=== PATIENT | male | born 1950 | race Caucasian/White ===

== ENCOUNTER 2017-08-07 08:05 | Day surgery (SDC) | payer MEDICARE ==
[2017-08-07] MEDS ORDERED: METOCLOPRAMIDE 10 MG TABLET PO ONE (08:06)
[2017-08-07] MEDS ORDERED: ACETAMINOPHEN 1,000 MG/100 ML BTL IV ONE (08:06)
[2017-08-07] MEDS ORDERED: ONDANSETRON HCL IV 4 MG/2 ML VIAL IVP ONE ×2 (08:06→16:30)
[2017-08-07] MEDS ORDERED: MIDAZOLAM HCL 2MG/2ML VIAL IV ONE (08:06)
[2017-08-07] MEDS ORDERED: MECLIZINE 25 MG TABLET PO ONE (08:06)
[2017-08-07] MEDS ORDERED: PHENYLEPHRINE HCL 10 MG/ML VIAL IVP ONE (08:06)
[2017-08-07] MEDS ORDERED: BUPIVACAINE 0.25% W/EPI MPF 30ML VIAL IVP ONE (08:06)
[2017-08-07] MEDS ORDERED: *PACU ONLY* KETAMINE HCL 10 MG/ML (20ML) VIAL IV ONE (08:06)
[2017-08-07] MEDS ORDERED: KETOROLAC 30 MG/ML VIAL IVP ONE (08:06)
[2017-08-07] MEDS ORDERED: HYDROMORPHONE HCL 2 MG/ML VIAL IV ONE (08:06)
[2017-08-07] MEDS ORDERED: PROPOFOL 10 MG/ML VIAL IV ONE (08:06)
[2017-08-07] MEDS ORDERED: EPHEDRINE SULFATE 50 MG/ML ML IV ONE (08:06)
[2017-08-07] MEDS ORDERED: BUPIVACAINE LIPOSOME 266MG/20ML VIAL IV ONE (08:06)
[2017-08-07] MEDS ORDERED: TRANEXAMIC ACID 1,000 MG/10 ML ML IV ONE ×2 (08:06)
[2017-08-07] MEDS ORDERED: 0.9 % SODIUM CHLORIDE 10 ML VIAL IVP ONE (08:06)
[2017-08-07] MEDS ORDERED: DIPHENHYDRAMINE HCL 50 MG/ML VIAL IVP ONE (08:06)
[2017-08-07] MEDS ORDERED: CEFAZOLIN 2 Gram 2 GM/50 ML BAG IVPB ONE (08:06)
[2017-08-07] MEDS ORDERED: FENTANYL PF 100MCG/2ML VIAL IV ONE (08:06)
[2017-08-07] MEDS ORDERED: FAMOTIDINE 20MG TABLET PO ONE (08:06)
[2017-08-07] MEDS ORDERED: WATER STERILE FOR INJECTION 20 ML VIAL IV ONE (08:06)
[2017-08-07] MEDS ORDERED: ONDANSETRON HCL IV 4 MG/2 ML VIAL IVP PRN (11:30)
[2017-08-07] MEDS ORDERED: OXYCODONE HCL 5 MG TABLET PO PRN (11:30)
[2017-08-07] MEDS ORDERED: TRAMADOL HCL 50 MG TABLET PO PRN ×2 (11:30)
[2017-08-07] MEDS ORDERED: SENNOSIDES/DOCUSATE SODIUM UD CAPSULE PO PRN (11:30)
[2017-08-07] MEDS ORDERED: METOCLOPRAMIDE HCL 10 MG/2 ML VIAL IVP PRN (11:30)
[2017-08-07] MEDS ORDERED: DIPHENHYDRAMINE HCL 25 MG CAPSULE PO PRN (11:30)
[2017-08-07] MEDS ORDERED: AL HYDROX/MAG HYDROX 30ML UD PO PRN (11:30)
[2017-08-07] MEDS ORDERED: HYDROMORPHONE HCL 2 MG/ML VIAL IV PRN (11:30)
[2017-08-07] MEDS ORDERED: ZOLPIDEM TARTRATE 5 MG TABLET PO PRN (11:30)
[2017-08-07] MEDS ORDERED: MAGNESIUM HYDROXIDE 30 ML UDC PO PRN (11:30)
[2017-08-07] MEDS ORDERED: TRANEXAMIC ACID 1,000 MG in 0.9 % SODIUM CHLORIDE 100ML 100 ML IVPB ONE (13:00)
[2017-08-07] MEDS ORDERED: RINGERS SOLUTION,LACTATED 1,000 ML IV PRN (14:48)
[2017-08-07] MEDS: OXYCODONE HCL 5 MG TABLET PO PRN ×2 (15:29→21:20)
[2017-08-07] MEDS: ACETAMINOPHEN 1,000 MG/100 ML BTL IV SCH ×2 (15:30→21:20)
--- NOTE | 2017-08-07 17:28 | Rehab Evaluation ---
Patient Information - Patient Information Diagnosis: L Knee OA Ordered Treatment: PT Evaluate and Treat Status: Initial Evaluation Surgery: Yes (L TKA) Date of Surgery: 08/07/17 History: Detail (Pt. reports history of knee pain secondary to osteoarthritis.) Past Med/Leisa Hx Detail: Detail (Pt. has underwent right knee replacement prior to L TKA.) Past Medical/Surgical Hx: PAST MEDICAL/SURGICAL HISTORY Past Surgical History RTKA 08-01-15 appendectomy PMH - Respiratory Hx Respiratory Disorders No PMH - Cardiovascular Hx Cardiovascular Disorders Yes Hx Hypertension Yes PMH - Neuro Hx Neurological Disorders No PMH - GI Hx Gastrointestinal Disorders No PMH - Hx Genitourinary Disorders No PMH - Endocrine Hx Endocrine Disorders No PMH - Musculoskeletal Hx Musculoskeletal Disorders Yes Hx Arthritis Yes: osteoarthritis left knee PMH - Psych Hx Psychiatric Problems No PMH - Hematology/Oncology Hx Hematology/Oncology No Disorders Premorbid Status: Detail (Pt. reports progressive worsening of sx.) Social History: Detail (Pt. lives in a two story home with spouse. Pt. has a standard walker, walk in shower with shower bench and hand held shower head. Pt. has three steps leading into the home with no hand rails. Pt. is to have outpatient PT services in [place].) Precautions: Fall - Time With Patient Total Time Spent With Patient (Min): 60 Treatment Procedures: Detail (Physical Therapy Initial Evaluation Completed. Pt. was left supine with call light available, B IPC, CPM attached, cryo LLE and nursing was notified of pt.'s status.) Subjective Information - Subjective Information Per Patient Objective Data - Pain Pain Present: Yes Pain Intensity: 6 Pain Scale Used: Numeric (1 - 10) - Mental Status Patient Orientation: Oriented x3 - Visual Perception Appears within normal limits for therapeutic activities - ROM Within normal limits (CPM set at 60 degrees flexion and 0 degrees extension. RLE was WFL for all planes of movement. BUE WFL all planes of movement.) - Strength/Tone Within normal limits (Not tested for knee flexion and extension. Pt. completed independent SLR LLE in bed to lift leg into CPM. Pt. able to hook involved LE with supine to seated positioning. RLE 5/5 grossly.) - Coordination Appears within normal limits for therapeutic activities - Bed Mobility Independent (Pt. required use of trapeeze with briding in bed to reposition lower extremity.) - Transfers Independent (Following instruction for hooking of the lower extremity, pt. was independent with supine to seated transfer. Pt. was independent with sit to stand and stand to sit transfer. Pt. did require instruction to avoid pulling on his walker and place one upper extremity behind him on a stable surface with sit to stand transfer.) - Balance Balance Sitting: Good Balance Standing: Fair - Sensation Intact - Gait Detail (Pt. required verbal cues to appropriately advance standard walker with involved lower extremity. Pt. required cues to flex his hip and knee appropriately. Pt. ambulated with CGA for 30 feet using standard walker. Pt. was not assessed for stairs.) - ADL's/IADL's Detail (Not assessed.) - Special Tests Yes (Negative for Verito's test.) Therapy Assessment - Therapy Assessment Detail (Pt. exhibits LE weakness, ROM deficit, balance impairment, and minimal assistance (verbal cueing and LE positioning) with bed mobility/transfer. The pt. is currently rated at 50% impairment with mobility considering his LE weakness and cues required to independently transfer.) Patient Education - Patient Education Teaching Topic: Community Resources, Discharge Instructions, Disease Process, Equipment Use, Exercise/Activity, Precautions, Risk Factors Response: Return Demonstration Teaching Method: Discussion, Demonstration Teaching Recipient: Patient, Family Barriers To Learning: None Problem List - Problem List Physical Therapy Problem List: Detail (1) LE weakness 2) Balance impairment 3) Cues required with bed mobility/transfer 4) Poor gait mechanics when ambulating with AD) Goals - Goals Physical Therapy Goals: 1) Pt. will independently ambulate with AD household distances without difficulty. 2) Pt. will not require verbal/tactile cues to independently perform bed mobility and transfer. 3) Pt. will verbalize good understanding of his HEP. 4) Pt. will verbalize good understanding of precautions. 5) Pt. will independently ascend and descend three steps with AD. Prognosis - Prognosis Good (Pt. is a good candidate to meet all PT goals.) Plan - Plan Physical Therapy Plan: Pt. is to be seen 1-2x per day for physical therapy services until goals met for safe D/C to home environment.
[2017-08-07] MEDS: CEFAZOLIN 2 Gram 2 GM/50 ML BAG IVPB SCH (18:04)
[2017-08-07] MEDS: RINGERS SOLUTION,LACTATED 1,000 ML IV SCH (18:06)
[2017-08-07] MEDS: ASPIRIN 325 MG TAB ENTERIC-COATED PO SCH (21:20)
[2017-08-08] MEDS: CEFAZOLIN 2 Gram 2 GM/50 ML BAG IVPB SCH ×2 (01:00→10:24)
[2017-08-08] MEDS: ACETAMINOPHEN 1,000 MG/100 ML BTL IV SCH (03:30)
[2017-08-08] MEDS: RINGERS SOLUTION,LACTATED 1,000 ML IV SCH (04:26)
[2017-08-08] MEDS: OXYCODONE HCL 5 MG TABLET PO PRN ×2 (05:26→10:26)
[2017-08-08 06:49] LABS: HEMATOCRIT 39.1 % (42.0-52.0); HEMOGLOBIN 12.8 gm/dl (14.0-18.0); MEAN CELL VOLUME 96.1 fl (81-97); MEAN CORPUSCULAR HEMOGLOBIN 31.4 pg (27-33); MEAN CORPUSCULAR HGB CONC 32.7 g/dl (32-36); MEAN PLATELET VOLUME 9.7 fl (7.4-10.4); PLATELET COUNT 258 K/uL (130-400); RED BLOOD COUNT 4.07 M/uL (4.40-5.70); RED CELL DISTRIBUTION WIDTH 14.3 % (11.5-14.5); WHITE BLOOD COUNT W/O DIFF 11.3 K/uL (4.2-12.2)
--- NOTE | 2017-08-08 09:58 | Physical Therapy Tx Note ---
Physical Therapy Tx Note - Treatment Note Tolerated: Good Total Time Spent With Patient: 25 Physical Therapy Tx Note: Detail (The patient ambulated with a standard walker WBAT on the L LE a distance of 108 feet x1 independently. The patient ambulated on 3 steps with use one railing and folded walker. The patient's HEP was reviewed and patient completed including: ankle pumps, gluteal sets, quad sets, hamstring sets, heel slides, SLR . The patient was indpendent with HEP. The patient's L knee flexion was measured as 80 degrees.) Physical Therapy Problem List: Detail (1) LE weakness 2) Balance impairment 3) Cues required with bed mobility/transfer 4) Poor gait mechanics when ambulating with AD) Physical Therapy Goals: GOALS MET: 1) Pt. will independently ambulate with AD household distances without difficulty. 2) Pt. will not require verbal/tactile cues to independently perform bed mobility and transfer. 3) Pt. will verbalize good understanding of his HEP. 4) Pt. will verbalize good understanding of precautions. 5) Pt. will independently ascend and descend three steps with AD. Physical Therapy Plan: All inpatient PT goals have been met. The patient is discharged from inpatient therapy and is to start outpatient PT on Friday.
[2017-08-08] MEDS ORDERED: METOPROLOL SUCC 25 MG TAB.ER PO SCH (10:00)
[2017-08-08] MEDS ORDERED: HYDROCHLOROTHIAZIDE 12.5 MG CAPSULE PO SCH (10:00)
[2017-08-08] MEDS ORDERED: LISINOPRIL 20 MG TABLET PO SCH (10:00)
[2017-08-08] MEDS: ASPIRIN 325 MG TAB ENTERIC-COATED PO SCH (10:26)
[2017-08-08] MEDS ORDERED: OXYCODONE/APAP 7.5MG/325MG TABLET PO PRN ×2 (11:30)
[2017-08-08] MEDS ORDERED: ACETAMINOPHEN 325 MG TAB PO PRN (11:30)
[2017-08-08] MEDS ORDERED: HYDROCODONE/APAP 7.5/325MG TABLET PO PRN ×2 (11:30)
--- NOTE | 2017-08-08 12:40 | Operative Note ---
DATE OF SURGERY: 08/07/2017 Surgeon: Boyd Alarcon DO PREOPERATIVE DIAGNOSIS: Osteoarthritis left knee. POSTOPERATIVE DIAGNOSIS: Osteoarthritis left knee. OPERATION: Left total knee arthroplasty. DESCRIPTION OF PROCEDURE: This 67-year-old male was taken to the operating room and placed in the supine position on the operating room table. Spinal anesthesia was induced by department of anesthesia. The left lower extremity was then elevated. It was prepped with Hibiclens and draped in the usual sterile fashion. It was exsanguinated and the tourniquet inflated to 300 mmHg. All scrub personnel wore personal isolation suits. An anterior longitudinal midline incision was made followed by a median parapatellar arthrotomy incision. An intercondylar drill hole was made for the intramedullary alignment angela, and a 6-degree valgus 9 mm cut was made in the distal femur. Wafer of bone was removed. A sizing jig was affixed and a size 67 was seen to be the appropriate size. The 4-in-1 cutting block was then pinned in 3 degrees of external rotation. The appropriate cuts were made. We then directed our attention to the proximal tibia, and an extramedullary alignment guide was used to cut the proximal tibia referencing a 10 mm cut off the lateral tibial plateau. After the appropriate rotation had been assured, a 3-degree posterior slope cut was made on the proximal tibia. The tibia was sized to a size 79. The stem punch was used. Remnants of the menisci and osteophytes were removed from the posterior aspect of the joint. The patella was then measured, cut, and restored to anatomic height with a 37 x 8.6 mm trial and the remaining trial components were inserted and a 10 mm bearing was seen to be the appropriate size. We tried a size 11, which seemed to be too tight and the patient did lose a little bit of extension. Subsequently, the 10 was put back in. The wound copiously irrigated with pulse lavage, lactated Ringer solution after all trial components had been removed and all debris was removed from the joint. All final components were cemented into place. Excess cement removed after the insertion of each component. Each bony surface was dried first. We started with the tibia and the size 79 tibia was cemented followed by the insertion of a 10 mm anterior stabilized tibial bearing. This was followed by the femur and subsequently the patella. Once the cement had hardened, the knee was again taken through range of motion and found to be stable. Exparel had been injected into the posterior, medial, and lateral corners of the joint and after the final components were in place, the remainder was injected into the periosteum and joint capsule of the proximal tibia and distal femur. A drain was placed through a separate stab incision. The arthrotomy incision was closed with a #2 Vicryl, subcutaneous tissue closed with 0 Vicryl. The skin was stapled. Sterile dressings applied followed by [employer]. The patient was taken to the recovery room in satisfactory condition. GROSS PATHOLOGY: This patient had advanced degenerative arthritis of by far and away worst in the medial compartmental. Full-thickness defects were present at the patellofemoral joint and the medial compartment. The final components inserted were a [employer] size 67.5 cruciate retaining femur, a 79 tibia baseplate, a 37 x 8.6 mm patella was used, and a 10 mm anterior stabilized A1 bearing. CC: DO NKECHI Alaniz
--- NOTE | 2017-08-11 11:10 | Discharge Summary ---
DATE OF ADMISSION: 08/07/2017 DATE OF DISCHARGE: 08/08/2017 ADMITTING DIAGNOSIS: Osteoarthritis of the left knee. DISCHARGE DIAGNOSIS: Osteoarthritis of the left knee. OPERATIVE PROCEDURE: Elective left total knee arthroplasty. DESCRIPTION: This 67-year-old male was admitted to the hospital for elective total knee arthroplasty and tolerated the operative procedure well. The drain was removed the first postoperative day. He cleared physical therapy. Showed no evidence of DVT. The patient's pain was well controlled. We will discharge him with outpatient physical therapy. He was instructed to wear his MELLY hose during the day and remove them at night. He will take aspirin 325 mg daily for 2 weeks. I have given him a prescription for Percocet 7.5/325, #60, 1-2 every 6 hours as necessary for pain. Routine wound care instructions were given. He will follow up in 2 weeks. Should he have any problems prior to being seen, he was instructed to call my office. NKECHI
== END 2017-08-08 13:07 | disposition home or self-care (01) ==
LOC: SUR 08:05 → MEDSURG 12:49 → SUR 08-08 13:07
PROVIDERS: ATTEND Orthopaedic Surgery
DX: M17.12 Unilateral primary osteoarthritis, left knee (principal); I10 Essential (primary) hypertension
CPT/HCPCS: 85014; 85018; 85025; 94760; 97110; 97530; J1200; J1885; J2370; J2405; J7120